=== PATIENT | female | born 1945 | race Caucasian/White ===

== ENCOUNTER → 2021-06-30 | Outpatient (CLI) | payer OTHER ==
[~2021-06-30] MED LIST: ABILIFY15 MG PO; ACETAMINOPHEN650 M5 PO; ASA81BEC PO; B COMPLEX1 EACH PO; CALCIUM 500 +1 EACH PO; CELEBREX 200 M200 MG PO; CYMBALTA30 MG PO; CYMBALTA60 MG PO; DESYREL150 MG PO; FLONASE 0.05%50 MCG NARES; HYDROCHLOROTH12.5 M2 PO; LIPITOR20 MG PO; MAGNESIUM250 M1 PO; MULTI VITAMIN1 EACH PO; NEURONTIN600 MG PO; NIACIN500 M2 PO; NORVASC10 MG PO; PAXIL40 MG PO; SYNTHROID200 MCG PO; TRAMADOL 50 MG50 MG PO; VERAPAMIL ER240 M1 PO; VITAMIN D325 MC5 PO; VITAMIN D350 MC3 PO; WELLBUTRIN XL300 MG PO; ZESTRIL40 MG PO
[2021-06-30 10:25] LABS: HEMATOCRIT 38.6 % (37.0-47.0); HEMOGLOBIN 13.1 gm/dL (12.0-15.0); MCH 31.4 pg (26.0-34.0); MCHC 33.9 g/dL (28.0-37.0); MCV 92.5 fL (80.0-100.0); RBC 4.17 mil/uL (4.20-5.00); RDW 13.1 % (10.5-14.5); URINE BILIRUBIN NEGATIVE (Negative); URINE BLOOD NEGATIVE (Negative); URINE CLARITY CLEAR; URINE COLOR YELLOW; URINE GLUCOSE-RANDOM* NEGATIVE (Negative); URINE KETONES NEGATIVE (Negative); URINE LEUKOCYTES-REFLEX NEGATIVE (Negative); URINE NITRITE-REFLEX NEGATIVE (Negative); URINE PROTEIN (DIPSTICK) NEGATIVE (Negative); URINE UROBILINOGEN 0.2 E.U./dl (0.2-1.0); WBC 4.3 thou/uL (4.0-11.0)
[2021-06-30 10:33] LABS: ALBUMIN 3.9 g/dL (3.4-5.0); CREATININE 0.7 mg/dL (0.6-1.0); POTASSIUM 4.1 mmol/L (3.5-5.1)
[2021-06-30 10:39] LABS: INR 0.99; PROTIME 10.8 Seconds (10.5-12.1)
--- NOTE | 2021-06-30 12:37 | EKG ---
[place] [address] [facility] [place] [address] ELECTROCARDIOGRAM REPORT Name: RICHELLE SHELTON Room #: REG [facility]#: [id number] Admission: 06/30/21 Attend Phys: Kip Shields MD Discharge: Date of : 49 Report #: [id number] [facility] Test Date: 2021-06-30 Test Time: 09:54:10 Pat Name: RICHELLE SHELTON Department: Room: Gender: F Wildlife Conservation Professor: Hayden COTTON : 1945 Requested By: Kip Shields Order Number: [id number] : Nathan Logan Measurements Intervals [place] Rate: 77 P: 47 MO: 174 QRS: 20 QRSD: 105 T: 13 QT: 393 QTc: 445 Interpretive Statements Sinus rhythm Low voltage, precordial leads No previous ECG available for comparison Electronically Signed On 06-30-2021 12:36:48 CDT by Nathan Logan [email or web address] <ELECTRONICALLY SIGNED> By: Nathan Logan MD, [facility] 06/30/21 1236 0954 09 Nathan Logan MD, FACC /EPI
[2021-07-01 02:10] LABS: GLYCOHEMOGLOBIN (HGB A1C) 5.5 % (4.8-5.6)
== END ==
LOC: PAC 08:51
PROVIDERS: ATTEND Orthopaedic Surgery
DX: Z01.818 Encounter for other preprocedural examination (principal); M17.11 Unilateral primary osteoarthritis, right knee; M25.561 Pain in right knee

== ENCOUNTER 2021-07-28 11:26 | Observation (INO) | payer OTHER ==
[~2021-07-28] VITALS: Ht 165.1 cm; Wt 86.6 kg
[2021-07-28 12:53] VITALS: BP 156/85
[2021-07-28 21:25] VITALS: BP 153/93
[2021-07-29] VITALS: BP 120/83
--- NOTE | 2021-07-29 02:09 | NUR ---
RECEIVED CARE OF THIS PATIENT AT 1907 WHEN PATIENT ARRIVED FROM ED VIA CART ACCOMPANIED BY ED ANNE. PATIENT ALERT AND ORIENTED X4. HAS CARMEN DRESSING ON R KNEE WITH POLAR PAC, TEDS AND SCDS. PATIENT'S TOES ARE WARM TO TOUCH AND IS ABLE TO MOVE THEM. C/O ONLY MILD PAIN. REMAINS ON BEDREST AT THIS TIME D/T BLOCK GIVEN. SLEPT OFF AND ON DURING NIGHT.
[2021-07-29 03:00] VITALS: BP 141/80
--- NOTE | 2021-07-29 08:51 | NUR ---
ASSESSMENT: CM REVIEWED CHART AND SPOKE WITH PATIENT AT THE BEDSIDE. PT IS S/P R TKA. PT REPORTS LIVING IN A HOUSE ALONE BUT STATES HER DAUGHTER LIVES NEXT DOOR TO HER. PT REPORTS HAVING 2 STEPS TO ENTER THE HOME WITH NO STEPS TO USE ONCE INSIDE. PT REPORTS HAVING A CANE AT HOME BUT DOES NOT HAVE A WALKER. CM DISCUSSED IF PATIENT NEEDS A WALKER THEN SHE HAS NO PREFERENCE OF DME COMPANY. CM NOTIFIED PROVIDER PLUS. PT REPORTS NOT HAVING A GRAB BAR OR SHOWER CHAIR. PT REPORTS HAVING OUTPATIENT THERAPY ARRANGED AT [facility] [place] TO [place] ON MONDAY. CM DISCUSSED ROLE. PT EVALS ARE PENDING BUT PT IS HOPEFUL SHE WILL BE ABLE TO RETURN HOME AND DO OUTPATIENT THERAPY. AWAITING THERAPY EVALS AND CM WILL MONITOR IF PATIENT NEEDS A WALKER.
[2021-07-29 09:42] VITALS: BP 123/68
--- NOTE | 2021-07-29 12:30 | NUR ---
A/O X 4. 2 L O2 VIA NASAL CANNULA POST OP. TRANSFERS STAND BY ASSIST WITH WALKER, GAIT STEADY. LEFT HAND IV WITH D5 0.45 NS INFUSING @ 100 MLS/HR. 0POLAR PACK TO RIGHT KNEE, CARMEN DRAIN RIGHT KNEE, [place] BILATERAL EARS. BILATERAL TEDS ON
--- NOTE | 2021-08-02 15:19 | O ---
[facility] [place] [address] OPERATIVE REPORT Name: RICHELLE SHELTON Room #: 438-P [facility] Briseida Torres#: [id number] Admission: 07/28/21 Attend Phys: Kip Shields MD Discharge: 07/29/21 Date of : 49 Report #: [id number] THIS REPORT FOR: cc: Gunner Aleman MD, Chrisitina D MD Abraham,Kip Perez MD ~ DATE OF SERVICE: 07/28/2021 PREOPERATIVE DIAGNOSIS: Right knee osteoarthritis. POSTOPERATIVE DIAGNOSIS: Right knee osteoarthritis. PROCEDURE: Right total knee arthroplasty using Navio robotic assistance. SURGEON: Kip Shields MD. PEDIATRIC AUDIOLOGIST: Norma Herbert PA-C. INDICATION FOR PEDIATRIC AUDIOLOGIST: Throughout the case, extensive retraction, manipulation of the knee was required. This was supported to me by my clinical assistant professor. ANESTHESIA: LMA with adductor canal block. IMPLANTS: [employer] size 5 Journey II BCS cobalt chrome femur, size 3 tibia, size 10 polyethylene, size 32 patella. TOURNIQUET TIME: 50 minutes. ESTIMATED BLOOD LOSS: 25 mL COMPLICATIONS: None. SPECIMENS: None. CONDITION UPON LEAVING THE OR: Stable. INDICATIONS FOR PROCEDURE: The patient is a 76-year-old female with severe right knee osteoarthritis. She had failed conservative measures for this and after discussion with her, she elected for right total knee arthroplasty. DESCRIPTION OF PROCEDURE: Risks, benefits, alternatives, complications were discussed in detail with the patient including but not limited to risk of anesthesia; risk of damage to nerves, arteries, blood vessels; risk for infection, bleeding, DVT, PE, need for reoperation. Informed consent was obtained from the patient. The right knee was appropriately marked in the [address] [address] OPERATIVE REPORT Name: RICHELLE SHELTON Room #: 438-P [facility] Briseida Torres#: [id number] Admission: 07/28/21 Attend Phys: Kip Shields MD Discharge: 07/29/21 Date of : 49 Report #: [id number] preoperative holding area. IV Ancef was given for preoperative antibiotics. Adductor canal block was placed by anesthesia. She was brought to the operating room and placed in supine position on the operating table. LMA anesthesia was induced without complication. Tourniquet was placed on the right thigh. Right lower extremity was prepped and draped in normal sterile fashion. Timeout was performed properly identifying the patient and procedure as well as the instrumentation and implants. All in the operating room in agreement. Right lower extremity was exsanguinated and tourniquet inflated. Tourniquet time was 50 minutes. Standard midline approach to the knee was made with 10 blade through the skin. Dissection was taken down sharply to the fascia and deep flaps were developed medially and laterally. Fresh 10 blade was used to make a medial parapatellar arthrotomy and the knee was inspected. There was severe tricompartmental osteoarthritis. ACL and PCL were removed sharply. Reference pins were placed in the femur and the tibia. The knee was then digitally mapped using the [employer] robotic system. Intraoperative plan was made. We sized the size 5 femur, size 3 tibia, a 10 spacer. After acceptance of the intraoperative plan, the distal femoral cut was made with Navio bur. Distal femoral cutting block was pinned in place and chamfer cuts were made. Attention was turned to the tibia. Remainder of the menisci removed with Bovie cautery. Tibial resection guide was pinned in place using Navio for placement and tibial resection was made. Flexion and extension gaps were then checked and found to have good balance both medially and laterally in flexion and extension. Tibia sized, found to be a size 3. A size 3 tibial trial was placed, pinned and punched. Size 5 femoral trial was placed and box cut was made. This was then trialed with a size 10 polyethylene. Size 10 polyethylene demonstrated 1-2 mm laxity medially with 1 mm laxity laterally throughout range of motion of the knee. 9 mm of bone was resected from the posterior surface of the patella and a size 32 patellar trial button was placed. Knee was taken through range of motion, found to be stable, found to have good patellar tracking. Trial components were removed. Bone ends were thoroughly irrigated with normal saline. A final size 3 tibia, size 5 Journey II BCS cobalt chrome femur and a size 32 patella were cemented in place using standard cementation techniques. While the cement cured, a periarticular injection consisting of morphine, ropivacaine, epinephrine, Toradol was placed around the knee joint capsule. After the cement cured, the tourniquet was deflated. Hemostasis was obtained with Bovie cautery. A final size 10 polyethylene was placed. A gram of vancomycin was placed deep in the joint. The fascia was closed with 0 Vicryl. Skin was closed with 2-0 Vicryl. Skin staple and a CARMEN dressing was applied. The patient tolerated this procedure well and went to the recovery room under care of anesthesia postoperatively. <ELECTRONICALLY SIGNED> By: Kip Shields MD 08/02/21 1519 1538 2048 Kip Shields MD /nt
== END 2021-07-29 16:30 | disposition home or self-care (01) ==
LOC: OR 11:26 → 4S 18:44 → OR 18:45 → 4S 18:45
PROVIDERS: ADMIT Orthopaedic Surgery; ATTEND Orthopaedic Surgery
DX: M17.11 Unilateral primary osteoarthritis, right knee (principal); Z20.822 Contact with and (suspected) exposure to COVID-19
CPT/HCPCS: 50010; 50101; 50415; 50954; 51130; 51225; 51320; 51412; 52001; 52282; 53000; 53078; 56527; 56528; 57095; 57103; 57110; 57127; 57180; 58239; 62110; 62900; 64042; 70005